=== PATIENT | male | born 1965 | race Caucasian/White ===

== ENCOUNTER 2018-05-29 14:58 | Observation (INO) | payer BC ==
[2018-05-29 15:04] VITALS: RESP 18
[2018-05-29 15:14] LABS: Glucose,Whole Blood 143 mg/dL (75-99)
[2018-05-29 15:16] LABS: Basophils # (A) 0.1 k/uL (0-0.2); Basophils % (A) 1 %; Eosinophils # (A) 0.3 k/uL (0-0.7); Eosinophils % (A) 3 %; HCT 43.5 % (39.0-53.0); HGB 14.6 gm/dL (13.0-17.5); Lymphocytes # (A) 2.9 k/uL (1.0-4.8); Lymphocytes % (A) 28 %; MCH 30.4 pg (25.0-35.0); MCHC 33.6 g/dL (31.0-37.0); MCV 90.4 fL (80.0-100.0); Monocytes # (A) 0.5 k/uL (0-1.0); Monocytes % (A) 5 %; Neutrophils # (A) 6.6 k/uL (1.3-7.7); Neutrophils % (A) 62 %; Platelet Count 182 k/uL (150-450); RBC 4.81 m/uL (4.30-5.90); RDW 13.7 % (11.5-15.5); WBC 10.7 k/uL (3.8-10.6)
[2018-05-29 15:25] LABS: Albumin 4.1 g/dL (3.5-5.0); Calcium 9.6 mg/dL (8.4-10.2); Potassium 4.6 mmol/L (3.5-5.1); Total Bilirubin 0.4 mg/dL (0.2-1.3); Total Protein 6.9 g/dL (6.3-8.2)
--- NOTE | 2018-05-29 15:27 | CT ---
EXAMINATION TYPE: CT brain wo con for TPA DATE OF EXAM: 05/29/2018 COMPARISON: None HISTORY: 52-year-old male Neuro Deficits, dysphasia TECHNIQUE: Examination was done in axial plane without intravenous contrast. Coronal and sagittal r econstructions performed. CT DLP: 903 mGycm Automated exposure control for dose reduction was used. FINDINGS: There is no evidence of acute intracranial hemorrhage, acute ischemic changes, mass, mass-effect, or extra-axial fluid collection. There is no effacement of cerebral sulci or basal subarachnoid cister ns. There is no hydrocephalus. There is no midline shift. Amezcua-white matter distinction is preserv ed. There is mucosal thickening posterior right ethmoid air cells. Mastoid air cells well pneumatized. Or bits and globes are intact. IMPRESSION: No acute intracranial abnormality seen.
[2018-05-29 15:32] LABS: Partial Thromboplastin Time 22.8 sec (22.0-30.0); Prothrombin Time 9.5 sec (9.0-12.0)
[2018-05-29 15:48] LABS: Creatine Kinase MB 1.2 ng/mL (0.0-2.4)
--- NOTE | 2018-05-29 15:51 | ED ---
Neuro HPI - General Chief Complaint: Neuro Symptoms/Deficit Stated Complaint: POSS CVA Time Seen by Provider: 05/29/18 14:58 Source: patient, EMS, RN notes reviewed Mode of arrival: EMS Limitations: no limitations - History of Present Illness Is the patient presenting with stroke symptoms?: Yes Initial Comments: This is a 52-year-old male with a history of smoking history of recent left shoulder steroid injection no prior history of stroke or heart disease who states he had the onset around 1 PM today of left upper extremity weakness and difficulty movement is well as some confusion and difficulty with speech. He states he went to bed around 5 AM this morning of he'll from work he woke up to use the bathroom at 1 p.m. as when the symptoms started. He thinks he may be a better his disagrees. No headache no blurry vision no nausea vomiting or other symptoms he does state he had a stress test last several years which was normal. - Related Data Home Medications: Home Medications Medication Instructions Recorded Confirmed Losartan Potassium 100 mg PO HS 05/29/18 05/29/18 Meloxicam [Mobic] 15 mg PO HS 05/29/18 05/29/18 amLODIPine BESYLATE/BENAZEPRIL 1 cap PO HS 05/29/18 05/29/18 [Lotrel 10-40 mg Capsule] Allergies/Adverse Reactions: Allergies Allergy/AdvReac Type Severity Reaction Status Date / Time No Known Allergies Allergy Verified 05/29/18 15:47 Review of Systems ROS Statement: Those systems with pertinent positive or pertinent negative responses have been documented in the HPI. ROS Other: All systems not noted in ROS Statement are negative. General Exam - General Exam Comments Initial Comments: This is a well-developed well-nourished awake alert oriented 3 male who does demonstrate evidence of expressive aphasia Limitations: no limitations General appearance: alert, anxious Head exam: Present: atraumatic, normocephalic, normal inspection Eye exam: Present: normal appearance, PERRL, EOMI. Absent: scleral icterus, conjunctival injection, periorbital swelling ENT exam: Present: normal exam, mucous membranes moist Neck exam: Present: normal inspection. Absent: tenderness, meningismus, lymphadenopathy Respiratory exam: Present: normal lung sounds bilaterally. Absent: respiratory distress, wheezes, rales, rhonchi, stridor Cardiovascular Exam: Present: regular rate, normal rhythm, normal heart sounds. Absent: systolic murmur, diastolic murmur, rubs, gallop, clicks GI/Abdominal exam: Present: soft, normal bowel sounds. Absent: distended, tenderness, guarding, rebound, rigid Extremities exam: Present: normal inspection, normal capillary refill, other. Absent: tenderness, pedal edema, joint swelling, calf tenderness Back exam: Present: normal inspection Neurological exam: Present: alert, oriented X3, CN II-XII intact, motor sensory deficit Psychiatric exam: Present: normal affect, normal mood Skin exam: Present: warm, dry, intact, normal color. Absent: rash Stroke MDM - Lab Data Result diagrams: 05/29/18 15:04 05/29/18 15:04 Lab Results 05/29/18 05/29/18 05/29/18 Range/Units 15:03 15:04 15:04 WBC 10.7 H (3.8-10.6) k/uL RBC 4.81 (4.30-5.90) m/uL Hgb 14.6 (13.0-17.5) gm/dL Hct 43.5 (39.0-53.0) % MCV 90.4 (80.0-100.0) fL MCH 30.4 (25.0-35.0) pg MCHC 33.6 (31.0-37.0) g/dL RDW 13.7 (11.5-15.5) % Plt Count 182 (150-450) k/uL Neutrophils % 62 % Lymphocytes % 28 % Monocytes % 5 % Eosinophils % 3 % Basophils % 1 % Neutrophils # 6.6 (1.3-7.7) k/uL Lymphocytes # 2.9 (1.0-4.8) k/uL Monocytes # 0.5 (0-1.0) k/uL Eosinophils # 0.3 (0-0.7) k/uL Basophils # 0.1 (0-0.2) k/uL PT (9.0-12.0) sec INR (<1.2) APTT (22.0-30.0) sec Sodium 140 (137-145) mmol/L Potassium 4.6 (3.5-5.1) mmol/L Chloride 110 H (98-107) mmol/L Carbon Dioxide 20 L (22-30) mmol/L Anion Gap 10 mmol/L BUN 34 H (9-20) mg/dL Creatinine 1.37 H (0.66-1.25) mg/dL Est GFR (CKD-EPI)AfAm 67 (>60 ml/min/1.73 sqM) Est GFR (CKD-EPI)NonAf 58 (>60 ml/min/1.73 sqM) Glucose 136 H (74-99) mg/dL POC Glucose (mg/dL) 143 H (75-99) mg/dL POC Glu Pediatric Sports Medicine Specialist Alea Vera Calcium 9.6 (8.4-10.2) mg/dL Total Bilirubin 0.4 (0.2-1.3) mg/dL AST 13 L (17-59) U/L ALT 24 (21-72) U/L Alkaline Phosphatase 63 (38-126) U/L Total Creatine Kinase (55-170) U/L CK-MB (CK-2) (0.0-2.4) ng/mL CK-MB (CK-2) Rel Index Troponin I (0.000-0.034) ng/mL Total Protein 6.9 (6.3-8.2) g/dL Albumin 4.1 (3.5-5.0) g/dL 05/29/18 05/29/18 Range/Units 15:04 15:04 WBC (3.8-10.6) k/uL RBC (4.30-5.90) m/uL Hgb (13.0-17.5) gm/dL Hct (39.0-53.0) % MCV (80.0-100.0) fL MCH (25.0-35.0) pg MCHC (31.0-37.0) g/dL RDW (11.5-15.5) % Plt Count (150-450) k/uL Neutrophils % % Lymphocytes % % Monocytes % % Eosinophils % % Basophils % % Neutrophils # (1.3-7.7) k/uL Lymphocytes # (1.0-4.8) k/uL Monocytes # (0-1.0) k/uL Eosinophils # (0-0.7) k/uL Basophils # (0-0.2) k/uL PT 9.5 (9.0-12.0) sec INR 1.0 (<1.2) APTT 22.8 (22.0-30.0) sec Sodium (137-145) mmol/L Potassium (3.5-5.1) mmol/L Chloride (98-107) mmol/L Carbon Dioxide (22-30) mmol/L Anion Gap mmol/L BUN (9-20) mg/dL Creatinine (0.66-1.25) mg/dL Est GFR (CKD-EPI)AfAm (>60 ml/min/1.73 sqM) Est GFR (CKD-EPI)NonAf (>60 ml/min/1.73 sqM) Glucose (74-99) mg/dL POC Glucose (mg/dL) (75-99) mg/dL POC Glu Pediatric Sports Medicine Specialist ID Calcium (8.4-10.2) mg/dL Total Bilirubin (0.2-1.3) mg/dL AST (17-59) U/L ALT (21-72) U/L Alkaline Phosphatase (38-126) U/L Total Creatine Kinase 52 L (55-170) U/L CK-MB (CK-2) 1.2 (0.0-2.4) ng/mL CK-MB (CK-2) Rel Index 2.3 Troponin I 0.074 H* (0.000-0.034) ng/mL Total Protein (6.3-8.2) g/dL Albumin (3.5-5.0) g/dL - NIH Stroke Scale 1a. Level of Consciousness: (0) alert 1b. LOC Questions: (0) answers correctly 1c. LOC Commands: (0) performs tasks correctly 2. Best Gaze: (0) normal 3. Visual: (0) no visual loss 4. Facial Palsy: (0) normal symmetrical movement 5a. Motor Arm Left: (1) drift 5b. Motor Arm Right: (0) no drift 6a. Motor Leg Left: (0) no drift 6b. Motor Leg Right: (0) no drift 7. Limb Ataxia: (0) absent 8. Sensory: (0) normal 9. Best Language: (1) mild/moderate aphasia 10. Dysarthria: (0) normal 11. Extinction/Inattention: (0) no abnormality - Thrombolytic Inclusion/Exclusion Thrombolytic Contraindications: Rapidly Improving s/s - Medical Decision Making I did discuss findings with patient family members Dr. Pat Hopson patient will be admitted for evaluation by neurology he does demonstrate evidence of renal insufficiency as well as elevated troponin. EKG did not demonstrate any acute evidence of changes. - EKG Data -: EKG Interpreted by Me EKG shows normal: sinus rhythm, axis, intervals, QRS complexes, ST-T waves Rate: normal (Sinus rhythm of 71 appear interval 172 QRS duration 80 QT since QTC 374/406 st-t wave changes) Past Medical History Past Medical History: Hypertension History of Any Multi-Drug Resistant Organisms: None Reported Additional Past Surgical History / Comment(s): reconstructive nose surgery Past Psychological History: Anxiety Smoking Status: Current every day smoker Past Alcohol Use History: None Reported Past Drug Use History: Marijuana Course Vital Signs 05/29/18 05/29/18 05/29/18 15:00 15:15 15:30 Temperature 97 F L Pulse Rate 76 70 68 Respiratory 18 18 18 Rate Blood Pressure 148/78 146/78 112/72 O2 Sat by Pulse 97 97 98 Oximetry 05/29/18 15:45 Temperature Pulse Rate 66 Respiratory 18 Rate Blood Pressure 101/69 O2 Sat by Pulse 98 Oximetry - Reevaluation(s) Reevaluation #1: 05/29/18 16:00 Evaluate the patient prior to going to CAT scan revealed that he did have improvement of his left upper extremity was able fully move it and headache completely control he did fill his speech was improving his was not sure of this. Reevaluation #2: 05/29/18 16:00 I did discuss the findings with Dr. Hopson patient will be admitted to this facility for evaluation by neurology. Reevaluation #3: 05/29/18 16:01 The patient was seen by Dr. Stewart in the emergency department. Critical Care Time Critical Care Time: Yes Critical Care Time: 37 minutes of critical care time which includes initial monitoring the EMS run and discussed with paramedics history physical labs x-rays several reevaluation of the patient. Discussed with the patient family regarding findings discussion with the various physicians admission orders and documentation of the above. Disposition Clinical Impression: Transient cerebral ischemia, Renal insufficiency, Elevated troponin Disposition: ADMITTED IP TO THIS [facility] Condition: Stable Referrals: Precious Marsh MD [Primary Care Provider] - 1-2 days
[2018-05-29 15:53] LABS: Troponin I 0.074 ng/mL (0.000-0.034)
--- NOTE | 2018-05-29 16:01 | XR ---
EXAMINATION TYPE: XR chest 2V DATE OF EXAM: 05/29/2018 COMPARISON: NONE HISTORY: Altered mental status TECHNIQUE: Frontal and lateral views of the chest are obtained. FINDINGS: Patient is rotated and there are overlying cardiac leads. There is no focal air space opaci ty, pleural effusion, or pneumothorax seen. The cardiac silhouette size is within normal limits, hea rt size may be accentuated by rotation. The osseous structures are intact. IMPRESSION: No acute cardiopulmonary process.
[2018-05-29] MEDS ORDERED: ASPIRIN 81 MG PO STA (16:06)
[2018-05-29] MEDS ORDERED: CLOPIDOGREL 75 MG TAB PO STA (16:06)
--- NOTE | 2018-05-29 16:08 | CT ---
EXAMINATION TYPE: CT angio head neck DATE OF EXAM: 05/29/2018 COMPARISON: CT brain same day HISTORY: 52-year-old male neuro deficits, dysphasia TECHNIQUE: Contiguous axial scanning of the head and neck performed with IV Contrast, patient injecte d with 65 mL of Isovue 370. Delayed images through the kidneys were obtained. Coronal/sagittal MIP re constructions performed. 3-D reconstructions generated on a dedicated independent workstation. CT DLP: 264.2 mGycm Automated exposure control for dose reduction was used. FINDINGS: Moderate centrilobular emphysema in the visualized upper lungs. 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 There is aberrant right subclavian artery which takes a retropharyngeal esophageal course. The left vertebral artery is dominant. Both vertebral arteries are patent with mild atherosclerotic c alcifications within the upper and V2 segment left vertebral artery. The right common and internal carotid arteries are patent. The left common carotid artery is patent. Minimal atherosclerotic plaque within the left carotid bulb . No significant narrowing of the left internal carotid artery. Hand: Again, the left vertebral artery is dominant. The V4 segment of the right vertebral artery becomes di minutive. The basilar artery is patent. Mild atherosclerotic calcification within the left greater than right carotid siphons. No significant stenosis of the internal carotid arteries. Anterior circulation is patent. No aneurysmal change seen. Incidental large polyp or mucosal retention cyst along the floor of the right maxillary sinus IMPRESSION: 1. HEAD: DOMINANT LEFT VERTEBRAL ARTERY. 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 OTHERWISE, NO SIGNIFICANT STENOSIS, ARTERIAL OCCLUSION, OR ANEURYSMAL CH LILIANA SEEN. 2. NECK: ABERRANT RIGHT SUBCLAVIAN ARTERY. PATENT CAROTID VASCULATURE OF THE NECK. COPD.
[2018-05-29] MEDS ORDERED: NICOTINE 21MG/24HR PATCH TRANSDERM STA (16:21)
[2018-05-29] MEDS: SODIUM CHLORIDE 0.9% 1,000 ML IV SCH (17:53)
[2018-05-29] MEDS: ATORVASTATIN 80 MG TAB PO SCH (20:22)
[2018-05-29] MEDS: FAMOTIDINE 20 MG TAB PO SCH (20:22)
[2018-05-29] MEDS ORDERED: LOSARTAN 50 MG TAB PO SCH (21:00)
[2018-05-29] MEDS ORDERED: amLODIPine 10 MG TAB PO SCH (21:00)
[2018-05-29] MEDS ORDERED: MELOXICAM 7.5 MG TAB PO SCH (21:00)
[2018-05-29] MEDS ORDERED: LISINOPRIL 20 MG TAB PO SCH (21:00)
--- NOTE | 2018-05-29 21:31 | XR ---
EXAMINATION TYPE: XR orbit detect foreign body DATE OF EXAM: 05/29/2018 COMPARISON: NONE HISTORY: Possible foreign body TECHNIQUE: 3 views FINDINGS: Orbital margins are intact. There is no sign of radiopaque foreign body. Paranasal sinuses appear normal. IMPRESSION: Normal exam. No evidence of foreign body.
--- NOTE | 2018-05-29 22:12 | P.HPIM ---
History of Present Illness H&P Date: 05/29/18 Chief Complaint: could not get words Patient is a 52-year-old male with a history of hypertension, chronic left shoulder pain with the recent steroid injection about one week ago, smoking at 2 packs per day came to ER with complaints of could not get words. Patient went to bed at 5 AM am in the morning after he came from work. Patient woke up in the afternoon and went to use his bathroom when the symptoms started around 1 :30 PM in the afternoon. Patient suddenly developed left hand weakness and keep dropping things. Patient also says that he could not get words and difficulty speech. Patient otherwise denied any bladder or bowel incontinence. No fever no chills. No recent illnesses. Patient came to ER for further evaluation. Patient was seen by stroke team and recommended no TPA at this time. Patient's symptoms are much improved and patient is able to come and get better now. Denied any headache or dizziness or blurry vision. No nausea vomiting or abdominal pain. CT angiogram of the head and neck showed dominant left vertebral artery. V4 segment of vertebral artery becomes diminutive probably on a congenital basis. No significant stenosis, Arterial occlusion or aneurysmal changes noted. Aberrant right subclavian artery. Patent carotid vasculature of the neck. CT head showed no acute intracranial abnormality Chest x-rays negative EKG showed normal sinus rhythm BUN 34 and creatinine 1.37 Troponin 0.074 Review of Systems Constitutional: Patient denies any fever or chills . No generalized weakness or weight loss. Abdomen: Patient denied nausea vomiting and diarrhea and abdominal pain. Cardiovascular: Patient denies any chest pain or short of breath no palpitations. Respiratory: patient denied any cough is from production. No shortness of breath Neurologic: Patient denied any numbness or tingling headache. Difficulty Musculoskeletal: Patient denies any complaints of joint swelling or deformity. Skin: Negative Psychiatric: Negative Endocrine: No heat or cold intolerance. No recent weight gain. Genitourinary: No dysuria or hematuria. All other 14 point ROS negative except the above Past Medical History Past Medical History: Hypertension History of Any Multi-Drug Resistant Organisms: None Reported Additional Past Surgical History / Comment(s): reconstructive nose surgery Past Anesthesia/Blood Transfusion Reactions: No Reported Reaction Past Psychological History: Anxiety Smoking Status: Current every day smoker Past Alcohol Use History: None Reported Past Drug Use History: Marijuana Additional Drug Use History / Comment(s): has smoked since about 16 years old, current smoker 2 PPD Medications and Allergies Home Medications Medication Instructions Recorded Confirmed Type Losartan Potassium 100 mg PO HS 05/29/18 05/29/18 History Meloxicam [Mobic] 15 mg PO HS 05/29/18 05/29/18 History amLODIPine BESYLATE/BENAZEPRIL 1 cap PO HS 05/29/18 05/29/18 History [Lotrel 10-40 mg Capsule] Allergies Allergy/AdvReac Type Severity Reaction Status Date / Time No Known Allergies Allergy Verified 05/29/18 15:47 Physical Exam Vitals: Vital Signs Temp Pulse Resp BP Pulse Ox 05/29/18 16:04 64 18 114/75 98 05/29/18 15:45 66 18 101/69 98 05/29/18 15:30 68 18 112/72 98 05/29/18 15:15 70 18 146/78 97 05/29/18 15:00 97 F L 76 18 148/78 97 Intake and Output 05/29/18 05/29/18 05/29/18 06:59 14:59 22:59 Other: Weight 92.986 kg PHYSICAL EXAMINATION: Patient is lying in the bed comfortably, no acute distress, awake alert and oriented.. HEENT: Normocephalic. Neck is supple. Pupils reactive. Nostrils clear. Oral cavity is moist. Ears reveal no drainage. Neck reveals no JVD, carotid bruits, or thyromegaly. CHEST EXAMINATION: Trachea is central. Symmetrical expansion. Prolonged expiration. Lung cao clear to auscultation and percussion. CARDIAC: Normal S1, S2 with no gallops. No murmurs ABDOMEN: Soft. Bowel sounds normal. No organomegaly. No abdominal bruits. Extremities: reveal no edema. No clubbing or cyanosis Neurologically awake, alert, oriented x3 with well-coordinated movements. Left upper extremity motor 4/5. Mild expressive aphasia Skin: No rash or skin lesions. Psychiatric: Coperative. Nonsuicidal Musculoskeletal: No joint swelling or deformity. Normal range of motion. Results CBC & Chem 7: 05/29/18 15:04 05/29/18 15:04 Labs: Abnormal Lab Results - Last 24 Hours (Table) 05/29/18 05/29/18 05/29/18 Range/Units 15:03 15:04 15:04 WBC 10.7 H (3.8-10.6) k/uL Chloride 110 H (98-107) mmol/L Carbon Dioxide 20 L (22-30) mmol/L BUN 34 H (9-20) mg/dL Creatinine 1.37 H (0.66-1.25) mg/dL Glucose 136 H (74-99) mg/dL POC Glucose (mg/dL) 143 H (75-99) mg/dL AST 13 L (17-59) U/L Total Creatine Kinase (55-170) U/L Troponin I (0.000-0.034) ng/mL 05/29/18 Range/Units 15:04 WBC (3.8-10.6) k/uL Chloride (98-107) mmol/L Carbon Dioxide (22-30) mmol/L BUN (9-20) mg/dL Creatinine (0.66-1.25) mg/dL Glucose (74-99) mg/dL POC Glucose (mg/dL) (75-99) mg/dL AST (17-59) U/L Total Creatine Kinase 52 L (55-170) U/L Troponin I 0.074 H* (0.000-0.034) ng/mL Thrombosis Risk Factor Assmnt - DVT/VTE Prophylaxis DVT/VTE Prophylaxis: Pharmacologic Prophylaxis ordered - Choose All That Apply Each Factor Represents 1 point: Age 41-60 years Thrombosis Risk Factor Assessment Total Risk Factor Score: 1 Thrombosis Risk Factor Assessment Level: Low Risk Assessment and Plan Assessment: Left upper extremity weakness and expressive aphasia likely due to TIA and possible acute CVA. Slightly elevated troponin level. Could be due to KRAIG and possible underlying CVA. Rule out ACS Nicotine addiction Hypertension Acute kidney injury most likely prerenal with possible underlying CK D stage III Anxiety History of marijuana use DVT prophylaxis with heparin subcu Plan: Patient will be continued on neuro checks. Patient is not a candidate for TPA as per stroke team. Continue with IV hydration and follow-up renal function. Continue with telemetry monitoring and serial EKG and troponins. will consider cardiology consult if the troponin is trending up. 2-D echocardiogram was ordered. Continue with aspirin. Neurology is on board. MRI of the brain was ordered. Patient has been counseled extensively for smoking cessation. Further recommendations based on the clinical course. Continue with home blood pressure medications. Patient is taking amlodipine + benazepril and losartan. Will hold losartan upon discharge. Time with Patient: Greater than 30
--- NOTE | 2018-05-29 22:15 | MR ---
EXAMINATION TYPE: MR brain wo con DATE OF EXAM: 05/29/2018 COMPARISON: None HISTORY: Confusion, speech problems Standard multiplanar, multisequence MRI departmental protocol Multiplanar, multisequence images of the brain were acquired. Diffusion weighted imaging was performe d. FINDINGS: There is fluid level in the right maxillary sinus. There is mild cerebral cortical atrophy. There is no mass effect nor midline shift. There is no sign of intracranial hemorrhage. Amezcua-white m atter structures have fairly normal signal pattern. There is no evidence of cerebral edema. Sella tur cica is normal. Corpus callosum appears normal. Brainstem appears normal. There is no evidence of an infarct. There is an 8 mm rounded area of intermediate to high signal on the anterior aspect of the sphenoid b one in the posterior nasopharynx. IMPRESSION: Mild right maxillary sinusitis. Negative MR scan of the brain. No evidence of cortical infarct. Small area of posterior mucosal thickening could relate to mild sinusitis or a Thornwaldt cyst.
[2018-05-29 23:04] LABS: Creatine Kinase MB 0.9 ng/mL (0.0-2.4)
[2018-05-29 23:13] LABS: Troponin I 0.062 ng/mL (0.000-0.034)
[2018-05-29] MEDS: HEPARIN SODIUM,PORCINE 5,000 UNIT/ML 1 ML VIAL SQ SCH (23:17)
[2018-05-30 03:01] LABS: Basophils # (A) 0.1 k/uL (0-0.2); Basophils % (A) 1 %; Eosinophils # (A) 0.3 k/uL (0-0.7); Eosinophils % (A) 3 %; HCT 43.2 % (39.0-53.0); HGB 14.7 gm/dL (13.0-17.5); Lymphocytes % (A) 32 %; MCH 30.7 pg (25.0-35.0); MCHC 33.9 g/dL (31.0-37.0); MCV 90.5 fL (80.0-100.0); Mean Platelet Volume 6.6; Monocytes # (A) 0.5 k/uL (0-1.0); Monocytes % (A) 5 %; Neutrophils # (A) 5.7 k/uL (1.3-7.7); Neutrophils % (A) 59 %; Platelet Count 188 k/uL (150-450); RBC 4.77 m/uL (4.30-5.90); RDW 13.8 % (11.5-15.5); WBC 9.7 k/uL (3.8-10.6)
[2018-05-30 03:14] LABS: Anion Gap 8 mmol/L; Blood Urea Nitrogen 27 mg/dL (9-20); Calcium 9.6 mg/dL (8.4-10.2); Carbon Dioxide 19 mmol/L (22-30); Chloride 112 mmol/L (98-107); Cholesterol 149 mg/dL (<200); Glucose 89 mg/dL (74-99); HDL Cholesterol 40 mg/dL (40-60); LDL Cholesterol,Calculated 56 mg/dL (0-99); Potassium 4.9 mmol/L (3.5-5.1); Sodium 139 mmol/L (137-145); Triglycerides 265 mg/dL (<150)
[2018-05-30 03:58] LABS: Troponin I 0.07 ng/mL (0.000-0.034)
[2018-05-30] MEDS: MELOXICAM 7.5 MG TAB PO SCH (06:29)
[2018-05-30] MEDS: amLODIPine 10 MG TAB PO SCH (06:29)
[2018-05-30] MEDS: LOSARTAN 50 MG TAB PO SCH (06:29)
[2018-05-30] MEDS ORDERED: CLOPIDOGREL 75 MG TAB PO SCH (09:00)
[2018-05-30] MEDS: FAMOTIDINE 20 MG TAB PO SCH ×2 (09:29→20:34)
[2018-05-30] MEDS: ASPIRIN 325 MG TAB PO SCH (09:30)
[2018-05-30] MEDS: HEPARIN SODIUM,PORCINE 5,000 UNIT/ML 1 ML VIAL SQ SCH ×3 (09:31→22:39)
--- NOTE | 2018-05-30 09:41 | CONS ---
CONSULTATION DATE OF CONSULTATION: 05/29/2018 CHIEF COMPLAINT: Transient ischemic attack. HISTORY OF PRESENT ILLNESS: The patient is a 52-year-old, male, who was being evaluated today on 05/29/2018 by the Neurology Service per the request of Dr. Stewart for a transient ischemic attack. The patient states that he woke up today at approximately 1 pm and noticed some changes in his left upper extremity. He states that he had difficulty using his left hand as he was trying to brush his hair and brush his teeth. He denies any numbness and denied any lower extremity symptoms. He then noticed that he was having difficulty talking. He states that he knew exactly what he wanted to say but the words would just not come out right. His symptoms lasted several minutes in his left upper extremity and his talking difficulties slowly improved. He states he is 90% better at the time of my evaluation. He states that every now and then, he would have some difficulty saying a specific word. A stat CT scan of the brain was done in the emergency room which was normal. A CT angiogram of the brain and neck showed no significant stenosis. His CBC showed minimal leukocytosis at 10.7. His comprehensive metabolic profile showed renal insufficiency with a BUN of 34 and creatinine of 1.37. He denies any history of renal disease. His glucose was slightly elevated at 143. Cardiac enzymes showed slightly elevated troponin I at 0.074. At the time of my evaluation, the patient is lying in his bed and appears to be in no acute distress. As mentioned above, he reports resolution of his left upper extremity symptoms but still has infrequent episodes of difficulty saying certain words. He is not on any antiplatelet medications at home. PAST MEDICAL HISTORY: Hypertension, anxiety disorder, history of nasal surgery. SOCIAL HISTORY: He is a current every day smoker. He denies any alcohol use. He does report marijuana use. FAMILY HISTORY: Positive for AVM. HOME MEDICATIONS: Reviewed in the chart. ALLERGIES: No known drug allergies. REVIEW OF SYSTEMS: CONSTITUTIONAL: Negative. EYES: Negative. ENT: Negative. CARDIOVASCULAR: Negative. RESPIRATORY: Negative. NEUROLOGICAL: As mentioned above. GASTROINTESTINAL: Negative. GENITOURINARY: As mentioned above. PSYCHIATRIC: Positive for history of anxiety disorder. MUSCULOSKELETAL: Negative. DERMATOLOGICAL: Negative. PHYSICAL EXAM: Vital signs show a temperature of 97.0, pulse 64, respiration 18, blood pressure 114/75. GENERAL APPEARANCE: The patient is a well-developed male, who appears to be in no acute distress. HEENT: Normocephalic, atraumatic, no facial asymmetry is seen. Extraocular muscles are intact. NECK: Supple with no masses felt. CARDIOVASCULAR: Regular rate and rhythm. ABDOMEN: Nontender, nondistended. Extremities showed no edema or clubbing. NEUROLOGICAL EXAM: The patient is awake and oriented x3. Speech and language are normal. Strength is full in all 4 extremities. Sensory exam was normal to light touch in all 4 extremities. No pronator drift is seen. No dysdiadochokinesia is noticed. Mthcrk-bidl-jjikfa testing showed no dysmetria. No facial asymmetry seen on cranial nerve testing. No tremors or seizure-like activity is seen. IMPRESSION: 1. Transient ischemic attack. 2. Expressive aphasia, improving. 3. Left upper extremity weakness, resolved. 4. Tobacco dependence. 5. Hypertension. RECOMMENDATION: The patient does appear to have suffered a transient ischemic attack with a transient episode of expressive aphasia and left upper extremity weakness. The ischemic event distribution is uncommon. For this reason, I will order an MRI of the brain without contrast. His CT angiogram showed no significant stenosis. The patient was not on any anti-platelet therapy at home. He has been started on both aspirin 325 mg daily and Plavix 75 mg daily on this admission. From a neurology standpoint, he only needs to be on aspirin, so Plavix will be discontinued. I will order a fasting lipid panel, EEG, and serum homocystine level. The patient was counseled on tobacco cessation. I do recommend further workup for his renal insufficiency. Continue the rest of your current workup and management. I will continue to follow with you. Further recommendations to follow. Thank you for allowing me to participate in the care of your patient. If you have any questions, please feel free to contact me. MMODL / IJN: [id number] /
[2018-05-30 13:42] VITALS: BMI 24.5
--- NOTE | 2018-05-30 15:15 | ECHOF ---
Referral Reason:Thrombus MEASUREMENTS -------- HEIGHT: 182.9 cm WEIGHT: 93.0 kg BP: RVIDd: 3.3 cm (< 3.3) IVSd: 1.3 cm (0.6 - 1.1) LVIDd: 4.7 cm (3.9 - 5.3) LVPWd: 1.4 cm (0.6 - 1.1) IVSs: 1.6 cm LVIDs: 3.1 cm LVPWs: 1.5 cm LA Diam: 3.0 cm (2.7 - 3.8) Ao Diam: 3.6 cm (2.0 - 3.7) AV Cusp: 2.2 cm (1.5 - 2.6) LA Diam: 3.7 cm (2.7 - 3.8) MV EXCURSION: 22.213 mm (> 18.000) MV EF SLOPE: 99 mm/s (70 - 150) EPSS: 0.7 cm MV E Phoenix: 0.53 m/s MV DecT: 210 ms MV A [place]: 0.62 m/s MV E/A Ratio: 0.85 FINDINGS -------- Sinus rhythm. This was a technically good study. The left ventricular size is normal. There is mild concentric left ventricular hypertrophy. Overa ll left ventricular systolic function is normal with, an EF between 55 - 60 %. The right ventricle is normal in size. The left atrial size is normal. The right atrial size is normal. The aortic valve is trileaflet, and appears structurally normal. No aortic stenosis or regurgitation. Mild mitral regurgitation is present. Mild tricuspid regurgitation present. There is mild pulmonary hypertension. The right ventricular systolic pressure, as measured by Doppler, is {RVSP}. There is no pulmonic regurgitation present. The aortic root is mildy dilated. Asc Aortic is mildly dilated measures 4.0cm. There is no pericardial effusion. CONCLUSIONS -------- 1. The left ventricular size is normal. 2. There is mild concentric left ventricular hypertrophy. 3. Overall left ventricular systolic function is normal with, an EF between 55 - 60 %. 4. The right ventricle is normal in size. 5. The left atrial size is normal. 6. The right atrial size is normal. 7. The aortic valve is trileaflet, and appears structurally normal. No aortic stenosis or regurgitati on. 8. Mild mitral regurgitation is present. 9. Mild tricuspid regurgitation present. 10. The right ventricular systolic pressure, as measured by Doppler, is {RVSP}. 11. There is no pulmonic regurgitation present. 12. The aortic root is mildy dilated. 13. Asc Aortic is mildly dilated measures 4.0cm. 14. There is no pericardial effusion. MARINE ELECTRICIAN HELPER: Katie Jones RDCS
--- NOTE | 2018-05-30 17:07 | P.PN ---
Subjective Progress Note Date: 05/30/18 Principal diagnosis: Patient is a pleasant 52-year-old male who is being followed by the neurology service for transient ischemic attack. Patient was brought to [facility] after having difficulty moving his left upper extremity. He also had difficulty word finding and speech was mildly dysarthric. Left upper extremity symptoms lasted several minutes and speech difficulty resolved last evening. Patient states he feels he is back to baseline. He denies any difficulty swallowing. Computed tomography scan of the brain was normal. CT angiogram of the brain and neck showed no significant stenosis. At the time of my evaluation, patient's resting comfortably in bed and appears to be in no acute distress. Objective - Vital Signs Vital signs: Vital Signs Temp 97.9 F 05/30/18 12:00 Pulse 70 05/30/18 12:00 Resp 18 05/30/18 12:00 BP 125/82 05/30/18 12:00 Pulse Ox 98 05/30/18 12:00 Intake & Output 05/29/18 05/30/18 05/30/18 18:59 06:59 18:59 Intake Total 20 420 Output Total 300 Balance 20 120 Weight 92.986 kg 86.7 kg 86.7 kg Intake: IV 20 0.9 20 Oral 420 Output: Urine 300 Other: Voiding Method Toilet Toilet # Voids 2 - Exam PHYSICAL EXAM: GENERAL APPEARANCE: Patient is a well-developed, male who appears to be in no acute distress. HEENT: Normocephalic, atraumatic, no facial asymmetry is seen. Neck is supple with no masses felt. CARDIOVASCULAR: Regular rate and rhythm. ABDOMEN: Nontender, nondistended. EXTREMITIES: Show no edema or clubbing. NEUROLOGICAL EXAM: Patient is awake, alert, and oriented 3. Speech and then which are normal. Strength is full in all 4 extremities. Sensory exam to light touch is normal in all 4 extremities. No facial asymmetry is seen on cranial nerve testing. No tremors or seizure-like activity noted. - Labs CBC & Chem 7: 05/30/18 02:47 05/30/18 02:47 Labs: Abnormal Lab Results - Last 24 Hours (Table) 05/29/18 05/30/18 05/30/18 Range/Units 22:18 02:47 02:47 Chloride (98-107) mmol/L Carbon Dioxide (22-30) mmol/L BUN (9-20) mg/dL Total Creatine Kinase 39 L 40 L (55-170) U/L Troponin I 0.062 H* 0.070 H* (0.000-0.034) ng/mL Triglycerides (<150) mg/dL Homocysteine 22.31 H (4.00-14.00) umol/L 05/30/18 Range/Units 02:47 Chloride 112 H (98-107) mmol/L Carbon Dioxide 19 L (22-30) mmol/L BUN 27 H (9-20) mg/dL Total Creatine Kinase (55-170) U/L Troponin I (0.000-0.034) ng/mL Triglycerides 265 H (<150) mg/dL Homocysteine (4.00-14.00) umol/L Assessment and Plan Plan: Impression: 1. Transient ischemic attack 2. Expressive aphasia, resolved 3. Left upper extremity weakness, resolved 4. Tobacco dependence 5. Hypertension Recommendation: Patient does appear to have suffered a transient ischemic attack with transient episode of expressive aphasia and left upper extremity weakness. These symptoms have resolved. No return of the symptoms since admission. No new neurological symptoms reported. MRI of the brain showed no acute process. CT angiogram showed no significant stenosis. Patient will continue aspirin 325 mg daily. EEG was normal. Patient's lipid panel showed elevated triglycerides at 265. I recommend correcting triglyceride level with medication. Patient's homocystine level was elevated at 22.3. I will order Foltx daily and he should continue this post discharge. Patient is cleared from a neurological standpoint for discharge. He can follow up in the office in a few weeks. I performed an examination of the patient and discussed the management with the ANALYSIS INTERN. I have reviewed the ANALYSIS INTERN notes and agree with the findings and plan of care.
[2018-05-30] MEDS: SODIUM CHLORIDE 0.9% 1,000 ML IV SCH (18:11)
--- NOTE | 2018-05-30 18:35 | EEG ---
ELECTROENCEPHALOGRAM REPORT DATE OF SERVICE: 05/30/2018 REASON FOR TESTING: Transient ischemic attack. DESCRIPTION OF THE PROCEDURE: This EEG was performed using a 21-channel digital electroencephalograph, following international 10-20 system. DESCRIPTION OF THE RECORDING: From the beginning of the tracing, and with the patient's eyes closed, the background rhythm was mostly consisting of 9 Hz alpha frequency in the posterior occipital lead. No obvious asymmetry is seen. Photic stimulation was performed with a minimal driving response seen. No pathological waves were elicited. Hyperventilation was not performed. Rare movement artifacts are seen. The patient does reach stage II of sleep during the tracing and occasional sleep spindles are seen. No epileptiform discharges were seen. His EKG lead showed a regular rate and rhythm. INTERPRETATION: This asleep and awake EEG can be considered within normal limits. There was no asymmetry seen. No epileptiform discharges were noticed. The absence of epileptiform discharges does not rule out the diagnosis of epilepsy; therefore clinical correlation is recommended. MMSOCRATES / YARI: [id number] /
[2018-05-30 19:12] LABS: Hemoglobin A1C 5.9 % (4.0-6.0)
[2018-05-30] MEDS: ATORVASTATIN 80 MG TAB PO SCH (20:34)
[2018-05-30] MEDS ORDERED: NICOTINE 21MG/24HR PATCH TRANSDERM STA (21:18)
[2018-05-31] MEDS: amLODIPine 10 MG TAB PO SCH (06:24)
[2018-05-31] MEDS: LOSARTAN 50 MG TAB PO SCH (06:24)
[2018-05-31] MEDS: MELOXICAM 7.5 MG TAB PO SCH (06:24)
[2018-05-31] MEDS: FAMOTIDINE 20 MG TAB PO SCH (08:32)
[2018-05-31] MEDS: HEPARIN SODIUM,PORCINE 5,000 UNIT/ML 1 ML VIAL SQ SCH (08:32)
[2018-05-31] MEDS: ASPIRIN 325 MG TAB PO SCH (08:32)
[2018-05-31] MEDS ORDERED: CYANOCOBALAMIN-FA-PYRIDOXINE 1 EACH TAB PO SCH (12:00)
[2018-05-31 17:04] VITALS: BP 135/84; PULSE 74; TEMP 97.1
--- NOTE | 2018-06-01 00:13 | P.PN ---
Subjective Progress Note Date: 05/30/18 Principal diagnosis: TIA Patient is a 52-year-old male with a history of hypertension, chronic left shoulder pain with the recent steroid injection about one week ago, smoking at 2 packs per day came to ER with complaints of could not get words. Patient went to bed at 5 AM am in the morning after he came from work. Patient woke up in the afternoon and went to use his bathroom when the symptoms started around 1 :30 PM in the afternoon. Patient suddenly developed left hand weakness and keep dropping things. Patient also says that he could not get words and difficulty speech. Patient otherwise denied any bladder or bowel incontinence. No fever no chills. No recent illnesses. Patient came to ER for further evaluation. Patient was seen by stroke team and recommended no TPA at this time. Patient's symptoms are much improved and patient is able to come and get better now. Denied any headache or dizziness or blurry vision. No nausea vomiting or abdominal pain. CT angiogram of the head and neck showed dominant left vertebral artery. V4 segment of vertebral artery becomes diminutive probably on a congenital basis. No significant stenosis, Arterial occlusion or aneurysmal changes noted. Aberrant right subclavian artery. Patent carotid vasculature of the neck. CT head showed no acute intracranial abnormality Chest x-rays negative EKG showed normal sinus rhythm BUN 34 and creatinine 1.37 Troponin 0.074 05/30/2018 Patient denied any complaints of chest pain or shortness of breath. No neurological issues. MRI of the brain was done. EEG was normal. No fever no chills. No cough or sputum production. No acute overnight issues. Renal function normalizes. Troponin is trending down. 2-D echocardiogram was done. Report is pending. Current medications reviewed Objective - Vital Signs Vital signs: Vital Signs Temp 97.9 F 05/30/18 12:00 Pulse 70 05/30/18 12:00 Resp 18 05/30/18 12:00 BP 125/82 05/30/18 12:00 Pulse Ox 98 05/30/18 12:00 Intake & Output 05/29/18 05/30/18 05/30/18 18:59 06:59 18:59 Intake Total 20 420 Output Total 300 Balance 20 120 Weight 92.986 kg 86.7 kg 86.7 kg Intake: IV 20 0.9 20 Oral 420 Output: Urine 300 Other: Voiding Method Toilet Toilet # Voids 2 - Exam PHYSICAL EXAMINATION: Patient is lying in the bed comfortably, no acute distress, awake alert and oriented.. HEENT: Normocephalic. Neck is supple. Pupils reactive. Nostrils clear. Oral cavity is moist. Ears reveal no drainage. Neck reveals no JVD, carotid bruits, or thyromegaly. CHEST EXAMINATION: Trachea is central. Symmetrical expansion. Lung cao clear to auscultation and percussion. CARDIAC: Normal S1, S2 with no gallops. No murmurs ABDOMEN: Soft. Bowel sounds normal. No organomegaly. No abdominal bruits. Extremities: reveal no edema. No clubbing or cyanosis Neurologically awake, alert, oriented x3 with well-coordinated movements. No focal deficits noted Skin: No rash or skin lesions. Psychiatric: Coperative. Nonsuicidal Musculoskeletal: No joint swelling or deformity. Normal range of motion. - Labs CBC & Chem 7: 05/30/18 02:47 05/30/18 02:47 Labs: Abnormal Lab Results - Last 24 Hours (Table) 05/29/18 05/29/18 05/29/18 Range/Units 15:03 15:04 15:04 WBC 10.7 H (3.8-10.6) k/uL Chloride 110 H (98-107) mmol/L Carbon Dioxide 20 L (22-30) mmol/L BUN 34 H (9-20) mg/dL Creatinine 1.37 H (0.66-1.25) mg/dL Glucose 136 H (74-99) mg/dL POC Glucose (mg/dL) 143 H (75-99) mg/dL AST 13 L (17-59) U/L Total Creatine Kinase (55-170) U/L Troponin I (0.000-0.034) ng/mL Triglycerides (<150) mg/dL Homocysteine (4.00-14.00) umol/L 05/29/18 05/29/18 05/30/18 Range/Units 15:04 22:18 02:47 WBC (3.8-10.6) k/uL Chloride (98-107) mmol/L Carbon Dioxide (22-30) mmol/L BUN (9-20) mg/dL Creatinine (0.66-1.25) mg/dL Glucose (74-99) mg/dL POC Glucose (mg/dL) (75-99) mg/dL AST (17-59) U/L Total Creatine Kinase 52 L 39 L (55-170) U/L Troponin I 0.074 H* 0.062 H* (0.000-0.034) ng/mL Triglycerides (<150) mg/dL Homocysteine 22.31 H (4.00-14.00) umol/L 05/30/18 05/30/18 Range/Units 02:47 02:47 WBC (3.8-10.6) k/uL Chloride 112 H (98-107) mmol/L Carbon Dioxide 19 L (22-30) mmol/L BUN 27 H (9-20) mg/dL Creatinine (0.66-1.25) mg/dL Glucose (74-99) mg/dL POC Glucose (mg/dL) (75-99) mg/dL AST (17-59) U/L Total Creatine Kinase 40 L (55-170) U/L Troponin I 0.070 H* (0.000-0.034) ng/mL Triglycerides 265 H (<150) mg/dL Homocysteine (4.00-14.00) umol/L Assessment and Plan Assessment: Left upper extremity weakness and expressive aphasia likely due to TIA and possible acute CVA. Slightly elevated troponin level. Could be due to KRAIG and possible underlying CVA. Rule out ACS Nicotine addiction Hypertension Acute kidney injury most likely prerenal with possible underlying CK D stage III. Improved Anxiety History of marijuana use DVT prophylaxis with heparin subcu Plan: Patient will be continued on neuro checks. Patient is not a candidate for TPA as per stroke team. Continue with IV hydration and follow-up renal function. Continue with telemetry monitoring and serial EKG and troponins. will consider cardiology consult if the troponin is trending up. 2-D echocardiogram was ordered. Continue with aspirin. Neurology is on board. MRI of the brain was ordered. Patient has been counseled extensively for smoking cessation. Further recommendations based on the clinical course. Continue with home blood pressure medications. Patient is taking amlodipine + benazepril and losartan at home. Time with Patient: Greater than 30
--- NOTE | 2018-06-01 00:16 | P.DS ---
Providers Date of admission: 05/29/18 16:17 Expected date of discharge: 05/31/18 Attending physician: Fanta Stewart Consults: 05/29/18 16:17 Consult Physician Routine Consulting Provider: Kassandra Schmid Consult Reason/Comments: TIA Do you want consulting provider notified?: Yes Primary care physician: Salma Lang Hospital Course: Discharge diagnosis Left upper extremity weakness and expressive aphasia likely due to TIA and possible acute CVA. Resolving now. Slightly elevated troponin level. Could be due to KRAIG and possible underlying CVA. Ruled out ACS Nicotine addiction Hypertension Acute kidney injury most likely prerenal with possible underlying CK D stage III. Improved Anxiety History of marijuana use DVT prophylaxis with heparin subcu Hospital course Patient is a 52-year-old male with a history of hypertension, chronic left shoulder pain with the recent steroid injection about one week ago, smoking at 2 packs per day came to ER with complaints of could not get words. Patient went to bed at 5 AM am in the morning after he came from work. Patient woke up in the afternoon and went to use his bathroom when the symptoms started around 1 :30 PM in the afternoon. Patient suddenly developed left hand weakness and keep dropping things. Patient also says that he could not get words and difficulty speech. Patient otherwise denied any bladder or bowel incontinence. No fever no chills. No recent illnesses. Patient came to ER for further evaluation. Patient was seen by stroke team and recommended no TPA at this time. Patient's symptoms are much improved and patient is able to come and get better now. Denied any headache or dizziness or blurry vision. No nausea vomiting or abdominal pain. CT angiogram of the head and neck showed dominant left vertebral artery. V4 segment of vertebral artery becomes diminutive probably on a congenital basis. No significant stenosis, Arterial occlusion or aneurysmal changes noted. Aberrant right subclavian artery. Patent carotid vasculature of the neck. CT head showed no acute intracranial abnormality Chest x-rays negative EKG showed normal sinus rhythm BUN 34 and creatinine 1.37 Troponin 0.074 05/30/2018 Patient denied any complaints of chest pain or shortness of breath. No neurological issues. MRI of the brain was done. EEG was normal. No fever no chills. No cough or sputum production. No acute overnight issues. Renal function normalizes. Troponin is trending down. 2-D echocardiogram was done. Report is pending. 05/31/2018 Patient denied any complains of chest pain or shortness breath. Neurologic workup is negative including CT head, CT angiogram of the neck, MRI and EEG are negative. Troponin level is trending down. 2-D echo showed normal ejection fraction and no wall motion abnormalities were noted. Otherwise patient is stable to be discharged home. No acute overnight issues. Patient was recommended to follow with neurology and cardiology as an outpatient. Follow with primary care physician in next 3-4 days. Continue with aspirin and statins and smoking cessation has been counseled extensively. Patient Condition at Discharge: Stable Plan - Discharge Summary Discharge Rx Participant: No New Discharge Prescriptions: New Aspirin 325 mg PO DAILY #30 tab Atorvastatin [Lipitor] 80 mg PO HS #30 tab Gpmhcailfkzzpt-CO-Jderqgclfo [Folbic] 1 each PO DAILY@1200 #30 tab Continue amLODIPine BESYLATE/BENAZEPRIL [Lotrel 10-40 mg Capsule] 1 cap PO HS Losartan Potassium 100 mg PO HS Discontinued Meloxicam [Mobic] 15 mg PO HS Discharge Medication List Losartan Potassium 100 mg PO HS 05/29/18 [History] amLODIPine BESYLATE/BENAZEPRIL [Lotrel 10-40 mg Capsule] 1 cap PO HS 05/29/18 [ History] Aspirin 325 mg PO DAILY #30 tab 05/31/18 [Rx] Atorvastatin [Lipitor] 80 mg PO HS #30 tab 05/31/18 [Rx] Oepvhidkrpkkak-RN-Dvyfrjqmki [Folbic] 1 each PO DAILY@1200 #30 tab 05/31/18 [Rx] Follow up Appointment(s)/Referral(s): Precious Marsh MD [Primary Care Provider] - 06/07/18 2:30 pm Rahul Murray MD [STAFF PHYSICIAN] - 06/05/18 10:15 am Kassandra Schmid MD [STAFF PHYSICIAN] - 1 Week (Office will call to set up appointment) Patient Instructions/Handouts: Transient Ischemic Attack (DC), Aphasia (DC) Discharge Disposition: HOME SELF-CARE
== END 2018-05-31 17:11 | disposition home or self-care (01) ==
LOC: EC 14:58 → 6SEL 16:17
PROVIDERS: ADMIT Internal Medicine; ATTEND Internal Medicine
DX: G45.9 Transient cerebral ischemic attack, unspecified (principal); R29.701 NIHSS score 1; R47.01 Aphasia; R53.1 Weakness; G89.29 Other chronic pain; I10 Essential (primary) hypertension; M25.512 Pain in left shoulder; R47.1 Dysarthria and anarthria; N17.9 Acute kidney failure, unspecified; F41.9 Anxiety disorder, unspecified; F17.210 Nicotine dependence, cigarettes, uncomplicated; Z79.899 Other long term (current) drug therapy; Z71.6 Tobacco abuse counseling; Z98.890 Other specified postprocedural states
CPT/HCPCS: 96372 ×3; 99291; 36415; 95819; 93005; 93306; 97161; 92523; 80061; 80053; 80048; 82550 ×2; 82553 ×2; 84484 ×3; 85025 ×2; 85610; 85730; 83090; 83036; 70030; 71046; 70496; 70450; 70498; 70551; G0378 ×3; S4990 ×2; J1644 ×3; Q9967

== ENCOUNTER → 2018-09-25 | Outpatient (CLI) | payer BC ==
[2018-09-26 04:32] LABS: LDL Cholesterol,Calculated 46.8 mg/dL (0.0-131.0); VLDL Calculation 34.2 mg/dL (5.00-40.00)
== END | disposition home or self-care (01) ==
LOC: LABWHC1 15:06
PROVIDERS: ATTEND Psychiatry & Neurology Pain Medicine
DX: G45.9 Transient cerebral ischemic attack, unspecified (principal); I63.9 Cerebral infarction, unspecified
CPT/HCPCS: 36415; 80061

== ENCOUNTER → 2023-06-27 | Outpatient (CLI) | payer MEDICAID ==
--- NOTE | 2023-06-28 07:23 | US ---
EXAMINATION TYPE: US carotid duplex BILAT DATE OF EXAM: 06/27/2023 COMPARISON: CTA: 05/29/18 CLINICAL INDICATION: Male, 58 years old with history of Z86.73 PRSNL HX OF TIA; TIA in 2018 TECHNIQUE: Carotid duplex ultrasound examination. Indirect Doppler criteria was utilized. FINDINGS: EXAM MEASUREMENTS: RIGHT: Peak Systolic Velocity (PSV) cm/sec ----- Right CCA: 88.1 ----- Right ICA: 75.0 ----- Right ECA: 94.2 ICA/CCA ratio: 0.9 RIGHT: End Diastole cm/sec ----- Right CCA: 28.5 ----- Right ICA: 22.7 ----- Right ECA: 26.0 LEFT: Peak Systolic Velocity (PSV) cm/sec ----- Left CCA: 81.5 ----- Left ICA: 74.0 ----- Left ECA: 79.5 ICA/CCA ratio: 0.9 LEFT: End Diastole cm/sec ----- Left CCA: 27.2 ----- Left ICA: 28.9 ----- Left ECA: 17.9 VERTEBRALS (direction of flow): Right Vertebral: Antegrade Left Vertebral: Antegrade Rhythm: Arrhythmia PROJECT ADMIN NOTES: Mild plaque seen in bilateral bulbs IMPRESSION: No evidence for hemodynamically significant stenosis. Criteria for Assigning % of Stenosis / Diameter reduction (Estimation based on the indirect measurements of the internal carotid artery velocities (ICA PSV). 1. Normal (no stenosis)=ICA PSV < 125 cm/s: ratio < 2.0: ICA EDV<40 cm/s. 2. Less than 50% stenosis=ICA PSV < 125 cm/s: ratio < 2.0: ICA EDV<40 cm/s. 3. 50 to 69% stenosis=ICA PSV of 125 to 230 cm/s: ration 2.0 ? 4.0: ICA EDV 40-100 cm/s. 4. Greater than 70% stenosis to near occlusion= ICA PSV > 230 cm/s: ratio > 4.0: ICA EDV > 100 cm/s. 5. Near occlusion= ICA PSV velocities may be low or undetectable: variable ratio and ICA EDV. 6. Total occlusion=unable to detect flow.
--- NOTE | 2023-06-28 09:10 | CTL ---
EXAMINATION TYPE: CT Low Dose Lung DATE OF EXAM ORDERED: 06/27/2023 HISTORY: . Lung cancer screening CT DLP: 133.[address] CTDI: 3.5 mGy Automated exposure control for dose reduction was used. SCREENING VISIT: COMPARISON: None TECHNIQUE: Low dose computed tomography scan was performed through the chest at 1 mm thick sections a nd reconstructed images in multiple planes at 1 mm and [address] DIAGNOSTIC QUALITY: Satisfactory FINDINGS: Diffuse emphysematous changes. No consolidative pneumonia. No pleural effusion or pneumothorax. There is a 3 mm left apical lung nodule. There is a tiny 1 mm calcified granuloma right lower lobe. There is a 5 mm nodule also near the right base. There is a nodule adjacent to the fissure within the superior segment right lower lobe axial i mage 136 measuring 4 mm. There is a 3 mm subpleural nodule image 214 right lower lobe. There is atherosclerotic change of the aorta. 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 Aberrant subclavian artery results in posterior compression of the esophagus. M ild atherosclerotic changes. Heart size normal with mild coronary artery calcification. Hypertrophic and degenerative changes of t he spine. Mild thickening of the bilateral adrenal gland likely on the basis of tiny benign adenoma. Small hiatal hernia. IMPRESSION: 1. Bilateral 5 mm or less pulmonary nodules have a benign appearance. 2. COPD. 3. 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 CT LUNG RAD AND CT CHEST RECOMMENDATION: Lung-Rad 2 Benign Appearance or Behavior: Continue annual sc reening with LDCT in 12 months.
== END | disposition home or self-care (01) ==
LOC: RADUSWWP 16:50
PROVIDERS: ATTEND Internal Medicine
DX: J44.9 Chronic obstructive pulmonary disease, unspecified (principal); R91.8 Other nonspecific abnormal finding of lung field; Q27.8 Other specified congenital malformations of peripheral vascular system; Z86.73 Personal history of transient ischemic attack (TIA), and cerebral infarction without residual deficits
CPT/HCPCS: 71271; 93880

== ENCOUNTER 2023-10-04 13:29 | Emergency (ER) | payer MEDICAID ==
[2023-10-04] MEDS ORDERED: KETOROLAC 15 MG/ML 1 ML VIAL IVP STA ×2 (17:16→20:40)
--- NOTE | 2023-10-04 17:20 | ED ---
Skin/Abscess/FB HPI - General Chief complaint: Skin/Abscess/Foreign Body Stated complaint: cyst in buttocks infected Time Seen by Provider: 10/04/23 17:01 Source: patient, RN notes reviewed Mode of arrival: ambulatory - History of Present Illness Initial comments: This is a 58-year-old male who presents to the emergency department for an abscess on his buttocks. States that he noticed this approximately one week ago. He saw his primary care provider 2 days ago, and at that time the abscess burst. He was started on Bactrim, and advised that if it did not improve, to come to the emergency department for possible IV antibiotics. The abscess is increasingly painful and he does not believe that it is getting much better on the Bactrim. He does continue to have drainage that he states is soaking through his undergarments. Believes that he has measured some fevers, but is not sure when or how high they have gotten. MD complaint: abscess/boil - Related Data Home Medications Medication Instructions Recorded Confirmed Losartan Potassium 100 mg PO HS 05/29/18 05/29/18 amLODIPine BESYLATE/BENAZEPRIL 1 cap PO HS 05/29/18 05/29/18 [Lotrel 10-40 MG] Previous Rx's Medication Instructions Recorded Aspirin 325 mg PO DAILY #30 tab 05/31/18 Atorvastatin [Lipitor] 80 mg PO HS #30 tab 05/31/18 Oldbbubumstzqh-LU-Ljjjxqsmnc 1 each PO DAILY@1200 #30 tab 05/31/18 [Folbic] Cephalexin [Keflex] 500 mg PO Q6HR 7 Days #28 cap 10/04/23 Allergies Allergy/AdvReac Type Severity Reaction Status Date / Time No Known Allergies Allergy Verified 10/04/23 13:37 Review of Systems ROS Statement: Those systems with pertinent positive or pertinent negative responses have been documented in the HPI. ROS Other: All systems not noted in ROS Statement are negative. Past Medical History Past Medical History: Hypertension History of Any Multi-Drug Resistant Organisms: None Reported Additional Past Surgical History / Comment(s): reconstructive nose surgery Past Anesthesia/Blood Transfusion Reactions: No Reported Reaction Past Psychological History: Anxiety Past Alcohol Use History: None Reported Past Drug Use History: Marijuana General Exam Limitations: no limitations General appearance: alert, in no apparent distress Head exam: Present: atraumatic, normocephalic, normal inspection Respiratory exam: Present: normal lung sounds bilaterally. Absent: respiratory distress, wheezes, rales, rhonchi, stridor Cardiovascular Exam: Present: regular rate, normal rhythm, normal heart sounds. Absent: systolic murmur, diastolic murmur, rubs, gallop, clicks Rectal exam: Present: other (Abscess to the left buttocks with active purulent drainage) Neurological exam: Present: alert, oriented X3, CN II-XII intact Psychiatric exam: Present: normal affect, normal mood Course Vital Signs 10/04/23 10/04/23 10/04/23 13:35 18:39 20:55 Temperature 97.5 F L 98.2 F 97.7 F Pulse Rate 85 60 70 Respiratory 16 20 20 Rate Blood Pressure 116/68 125/81 101/64 O2 Sat by Pulse 98 97 95 Oximetry 10/04/23 21:25 Temperature 98.2 F Pulse Rate 68 Respiratory 20 Rate Blood Pressure 105/58 O2 Sat by Pulse 97 Oximetry Procedures - Incision & Drainage Consent Obtained: verbal consent Indication: Abscess Site: buttock Size (cm): 3 Anesthetic Used: lidocaine 2%, with epi I&D Cleaning Method: Alcohol Wipe Sterile Field Used?: Yes Scalpel Used: #11 Ultrasound used: No Needle Aspiration Performed?: No Irrigation Performed?: Yes I&D Drainage Obtained: Pus, Blood Medical Decision Making - Medical Decision Making This is a 58-year-old male who presents to the emergency department for abscess. Was pt. sent in by a medical professional or institution? @ -No Did you speak to anyone other than the patient for history? @ -No Did you review nursing and triage notes? @ -Yes, and I agree, it is accurate with regards to the patient's symptoms. Were old charts reviewed? @ -No Differential Diagnosis? @ -Differential Abscess: Cyst, cellulitis, phlegmon, tumor, this is not meant to be an all-inclusive list. EKG interpreted by me (3pts min.)? @ -Not obtained X-rays interpreted by me (1pt min.)? @ -Not obtained CT interpreted by me (1pt min.)? @ -Not obtained U/S interpreted by me (1pt. min.)? @ -Not obtained What testing was considered but not performed? (CT, X-rays, U/S, labs)? Why? @ -None What meds were considered but not given? Why? @ -None Did you discuss the management of the patient with other professionals? @ -No Did you reconcile home meds? @ -No Was smoking cessation discussed for >3mins.? @ -I discussed smoking cessation for greater than 3 minutes. The risk of smoking were discussed with the patient including but not limited to risks of cancer, stroke, coronary artery disease and COPD. Also discussed with patient were multiple methods of quitting smoking. Lastly we discussed the financial cost of smoking. Was critical care preformed (if so, how long)? @ -No Were there social determinants of health that impacted care today? How? (Homelessness, low income, unemployed, alcoholism, drug addiction, transportation, low edu. Level, literacy, decrease access to med. care, alf, rehab)? @ -No Was there de-escalation of care discussed even if they declined? (Discuss DNR or withdrawal of care, Hospice)? @ -No What co-morbidities impacted this encounter? (DM, HTN, Smoking, COPD, CAD, Cancer, CVA, Hep., AIDS, mental health diagnosis, sleep apnea, morbid obesity)? @ -Smoking, HTN Was patient admitted / discharged? @ -Discharged. Lab work obtained revealing leukocytosis, consistent with the patient's infection. The patient remained afebrile in the emergency department and he did not meet sepsis criteria. Incision and drainage was performed and a copious amount of purulent material was expressed from the abscess. Wound cultures were obtained. Rx for Keflex provided to be taken with the Bactrim. Advised he continue with warm compresses and he was given information to follow up with general surgery. Undiagnosed new problem with uncertain prognosis? @ -None Drug Therapy requiring intensive monitoring for toxicity (Heparin, Nitro, Insulin, Cardizem)? @ -None Were any procedures done? @ -Incision and drainage of buttocks abscess Diagnosis/symptom? @ -Left buttock abscess Acute, or Chronic, or Acute on Chronic? @ -Acute Uncomplicated (without systemic symptoms) or Complicated (systemic symptoms)? @ -Uncomplicated Side effects of treatment? @ -None Exacerbation, Progression, or Severe Exacerbation] @ -Not applicable Poses a threat to life or bodily function? @ -No Return precautions reviewed in depth, the patient is instructed to return to the emergency department with any new, worsening, or concerning symptoms. Patient verbalized understanding. This case was discussed in detail with the attending ED physician, Dr. Bone. Presentation, findings, and treatment plan discussed in detail as well. - Lab Data Result diagrams: 10/04/23 18:44 10/04/23 18:44 Lab Results 10/04/23 10/04/23 10/04/23 Range/Units 18:44 18:44 18:44 WBC 14.6 H (3.8-10.6) k/uL RBC 5.39 (4.30-5.90) m/uL Hgb 16.5 (13.0-17.5) gm/dL Hct 48.7 (39.0-53.0) % MCV 90.4 (80.0-100.0) fL MCH 30.7 (25.0-35.0) pg MCHC 34.0 (31.0-37.0) g/dL RDW 13.1 (11.5-15.5) % Plt Count 212 (150-450) k/uL MPV 7.3 Neutrophils % 83 % Lymphocytes % 8 % Monocytes % 6 % Eosinophils % 1 % Basophils % 0 % Neutrophils # 12.1 H (1.3-7.7) k/uL Lymphocytes # 1.1 (1.0-4.8) k/uL Monocytes # 0.9 (0-1.0) k/uL Eosinophils # 0.1 (0-0.7) k/uL Basophils # 0.1 (0-0.2) k/uL Sodium 134 L (137-145) mmol/L Potassium 4.4 (3.5-5.1) mmol/L Chloride 103 (98-107) mmol/L Carbon Dioxide 17 L (22-30) mmol/L Anion Gap 14 mmol/L BUN 25 H (9-20) mg/dL Creatinine 1.64 H (0.66-1.25) mg/dL Est GFR (CKD-EPI)AfAm 52 (>60 ml/min/1.73 sqM) Est GFR (CKD-EPI)NonAf 45 (>60 ml/min/1.73 sqM) Glucose 108 H (74-99) mg/dL Plasma Lactic Acid Jose 1.7 (0.7-2.0) mmol/L Calcium 9.5 (8.4-10.2) mg/dL Total Bilirubin 0.6 (0.2-1.3) mg/dL AST 16 L (17-59) U/L ALT 19 (4-49) U/L Alkaline Phosphatase 109 (38-126) U/L C-Reactive Protein 14.5 H (<1.0) mg/dL Total Protein 7.5 (6.3-8.2) g/dL Albumin 4.1 (3.5-5.0) g/dL Disposition Clinical Impression: Nicotine dependence, Left buttock abscess Disposition: HOME SELF-CARE Instructions (If sedation given, give patient instructions): Abscess Incision and Drainage (ED), Abscess (ED) Additional Instructions: Return to the emergency department with any new, worsening, or concerning sympto ms. Apply warm compresses and begin taking the new antibiotic as prescribed for 7 days in addition to the one you were already prescribed. Alternate with Ibuprofen and Tylenol as needed for pain relief. Contact general surgery as listed below for a follow up appointment Prescriptions: Cephalexin [Keflex] 500 mg PO Q6HR 7 Days #28 cap Is patient prescribed a controlled substance at d/c from ED?: No Referrals: Ceferino Last DO [Primary Care Provider] - 1-2 days Luis Eduardo Duval MD [STAFF PHYSICIAN] - 1-2 days Time of Disposition: 20:41
[2023-10-04 18:50] VITALS: RESP 20
[2023-10-04] MEDS ORDERED: LIDOCAINE 2%-EPI 1:100,000 20 ML VIAL SQ ONE (19:02)
[2023-10-04 19:56] LABS: Basophils # (A) 0.1 k/uL (0-0.2); Basophils % (A) 0 %; Eosinophils # (A) 0.1 k/uL (0-0.7); Eosinophils % (A) 1 %; HCT 48.7 % (39.0-53.0); HGB 16.5 gm/dL (13.0-17.5); Lymphocytes # (A) 1.1 k/uL (1.0-4.8); Lymphocytes % (A) 8 %; MCH 30.7 pg (25.0-35.0); MCV 90.4 fL (80.0-100.0); Mean Platelet Volume 7.3; Monocytes # (A) 0.9 k/uL (0-1.0); Monocytes % (A) 6 %; Neutrophils # (A) 12.1 k/uL (1.3-7.7); Neutrophils % (A) 83 %; Platelet Count 212 k/uL (150-450); RBC 5.39 m/uL (4.30-5.90); RDW 13.1 % (11.5-15.5); WBC 14.6 k/uL (3.8-10.6)
[2023-10-04 20:32] LABS: ALT 19 U/L (4-49); AST 16 U/L (17-59); African American GFR (CKD) 52 (>60 ml/min/1.73 sqM); Albumin 4.1 g/dL (3.5-5.0); Alkaline Phosphatase 109 U/L (38-126); Anion Gap 14 mmol/L; Blood Urea Nitrogen 25 mg/dL (9-20); Calcium 9.5 mg/dL (8.4-10.2); Carbon Dioxide 17 mmol/L (22-30); Chloride 103 mmol/L (98-107); Glucose 108 mg/dL (74-99); Non-African American GFR(CKD) 45 (>60 ml/min/1.73 sqM); Potassium 4.4 mmol/L (3.5-5.1); Sodium 134 mmol/L (137-145); Total Bilirubin 0.6 mg/dL (0.2-1.3); Total Protein 7.5 g/dL (6.3-8.2)
[2023-10-04] MEDS ORDERED: ONDANSETRON 4 MG ODT STARTER PACK 2 TAB BTL PO STA (20:33)
[2023-10-04] MEDS ORDERED: CEPHALEXIN 500MG STARTER PACK 4 CAP BTL PO STA (20:33)
[2023-10-04] MEDS ORDERED: ACET/COD 300 MG/30 MG STARTER PACK 6 TAB BTL PO STA (20:33)
[2023-10-04] MEDS ORDERED: MORPHINE SULFATE 4 MG/ML SYRINGE IVP STA (20:40)
[2023-10-04 21:29] LABS: C Reactive Protein 14.5 mg/dL (<1.0)
[2023-10-04 21:46] VITALS: BP 105/58; PULSE 68; TEMP 98.2
[2023-10-05 03:46] LABS: Erythrocyte Sedimentation Rate 38 mm/Hr (0-20)
== END 2023-10-04 22:44 | disposition home or self-care (01) ==
LOC: EC 13:29
DX: L02.31 Cutaneous abscess of buttock (principal); F17.200 Nicotine dependence, unspecified, uncomplicated; I10 Essential (primary) hypertension; F41.9 Anxiety disorder, unspecified; F12.90 Cannabis use, unspecified, uncomplicated; Z79.899 Other long term (current) drug therapy
CPT/HCPCS: 99283; 10060; 36415; 80053; 85652; 83605; 85025; 86140; 87040; 87070; 87205; 87075; 96374; 96375 ×2; 96376; J2270; J0690; J1885; S0119; 96360; 96361; 99285